=== PATIENT | male | born 1950 | race Hispanic/Latino ===

== ENCOUNTER 2018-03-29 08:36 | Outpatient (CLI) | payer OTHER | END 2018-03-29 19:10 | disposition home or self-care (01) | LOC: RAD 08:36 | DX: M54.17 Radiculopathy, lumbosacral region (principal) ==

== ENCOUNTER 2018-04-02 08:34 | Outpatient (CLI) | payer OTHER | END 2018-04-02 23:38 | disposition home or self-care (01) | LOC: MRI 08:34 | DX: M54.17 Radiculopathy, lumbosacral region (principal) ==

== ENCOUNTER 2020-03-05 02:31 | Emergency (ER) | payer OTHER ==
[~2020-03-05] VITALS: Ht 175.3 cm; Wt 86.2 kg
[2020-03-05 02:55] LABS: PLATELET COUNT 337 K/uL (142-355)
[2020-03-05 02:59] LABS: POTASSIUM 3.4 mmol/L (3.6-5.2); SODIUM 132 mmol/L (136-145)
[2020-03-05 04:04] VITALS: BP 140/53; TEMP 99.1
== END 2020-03-05 04:15 | disposition home or self-care (01) ==
LOC: ED 02:35
PROVIDERS: Hospitalist
DX: E86.0 Dehydration (principal); R19.7 Diarrhea, unspecified; U07.1 COVID-19; R06.02 Shortness of breath
CPT/HCPCS: 80053; 82550; 83880; 84484; 85027; 85610; 85730; 93005; 96360; 99284

== ENCOUNTER 2020-07-20 18:41 | Emergency (ER) | payer OTHER ==
[~2020-07-20] VITALS: Ht 175.3 cm; Wt 95.3 kg
[2020-07-20 19:30] VITALS: BP 100/51; TEMP 97.7
== END 2020-07-20 19:30 | disposition home or self-care (01) ==
LOC: ED 18:41
DX: J01.80 Other acute sinusitis (principal)
CPT/HCPCS: 99282

== ENCOUNTER 2020-07-22 14:36 | Outpatient (CLI) | payer OTHER ==
[2020-07-22 15:49] LABS: PLATELET COUNT 239 K/uL (142-355)
[2020-07-22 15:56] LABS: POTASSIUM 4.6 mmol/L (3.6-5.2)
[2020-07-23] MEDS ORDERED: ALLERGY RE50 MCG/ACT NAS (09:55)
[2020-07-23] MEDS ORDERED: TRIMETHOPRIM100 MG PO (09:57)
[2020-07-23] MEDS ORDERED: LISITAB PO (09:59)
== END 2020-07-22 20:31 | disposition home or self-care (01) ==
LOC: LABW 14:36
PROVIDERS: ATTEND Family Medicine
DX: R53.83 Other fatigue (principal); R53.1 Weakness; I95.89 Other hypotension
CPT/HCPCS: 36415; 80053; 80074; 82728; 83540; 83550; 85027; 86318

== ENCOUNTER 2020-07-22 16:43 | Observation (INO) | payer OTHER ==
[~2020-07-22] VITALS: Ht 180.3 cm; Wt 86.4 kg
[2020-07-22 16:49] VITALS: BP 133/63; TEMP 97.1
[2020-07-22 17:30] VITALS: BP 120/78
[2020-07-22 17:38] LABS: PLATELET COUNT 236 K/uL (142-355)
[2020-07-22 17:48] LABS: POTASSIUM 4.4 mmol/L (3.6-5.2); SODIUM 137 mmol/L (136-145)
[2020-07-22 17:55] LABS: PARTIAL THROMBOPLASTIN TIME 23.8 SECONDS (24.5-33.6)
[2020-07-22 18:30] VITALS: BP 128/77
[2020-07-22 19:00] VITALS: BP 124/70
[2020-07-22 19:22] VITALS: BP 114/82
[2020-07-23] VITALS (8 sets, daily range): BP systolic 102–131; BP diastolic 56–73; TEMP 97.6–98.5; Ht 180.3 cm; Wt 86.4 kg
[2020-07-23 08:53] LABS: PLATELET COUNT 201 K/uL (142-355)
[2020-07-23 09:04] LABS: POTASSIUM 4.5 mmol/L (3.6-5.2)
[2020-07-23] MEDS ORDERED: ALLERGY RE50 MCG/ACT NAS (09:55)
[2020-07-23] MEDS ORDERED: TRIMETHOPRIM100 MG PO (09:57)
[2020-07-23] MEDS ORDERED: LISITAB PO (09:59)
[2020-07-24 03:43] VITALS: BP 120/52; TEMP 98.4
[2020-07-24 05:33] LABS: PLATELET COUNT 172 K/uL (142-355)
[2020-07-24 05:54] LABS: POTASSIUM 4.4 mmol/L (3.6-5.2)
[2020-07-24 08:00] VITALS: BP 139/53; TEMP 97.6
[2020-07-24 12:00] VITALS: BP 105/56; TEMP 98.2
[2020-07-24 16:00] VITALS: BP 108/54; TEMP 97.7
[2020-07-24 20:07] VITALS: BP 121/55; TEMP 98.4
[2020-07-25 00:26] VITALS: BP 109/62; TEMP 98.6
[2020-07-25 03:53] VITALS: BP 100/61; TEMP 97.6
[2020-07-25 06:06] LABS: PLATELET COUNT 180 K/uL (142-355)
[2020-07-25 08:00] VITALS: BP 113/58; TEMP 97.5
== END 2020-07-25 10:50 | disposition home or self-care (01) ==
LOC: ED 16:43 → MED/SURG 19:03
PROVIDERS: Hospitalist; ADMIT Internal Medicine Endocrinology, Diabetes & Metabolism; ATTEND Internal Medicine Endocrinology, Diabetes & Metabolism
DX: N17.8 Other acute kidney failure (principal); N32.0 Bladder-neck obstruction; K21.9 Gastro-esophageal reflux disease without esophagitis; N40.0 Benign prostatic hyperplasia without lower urinary tract symptoms; E11.22 Type 2 diabetes mellitus with diabetic chronic kidney disease; I12.0 Hypertensive chronic kidney disease with stage 5 chronic kidney disease or end stage renal disease; N18.5 Chronic kidney disease, stage 5; D63.1 Anemia in chronic kidney disease
CPT/HCPCS: 36415; 80048; 80053; 81000; 82550; 82570; 82948; 83880; 84300; 84484; 85027; 85610; 85730; 87635; 93005; 94760; 96360; 96361; 96372; 96374; 99220; 99284; G0378; J1650; J1815; J3490; U0003

== ENCOUNTER 2020-08-19 09:31 | Outpatient (CLI) | payer OTHER ==
[~2020-08-19 09:31] MED LIST: ALLERGY RE50 MCG/ACT NAS; LISITAB PO; TRIMETHOPRIM100 MG PO
[2020-08-19 11:05] LABS: PLATELET COUNT 394 K/uL (142-355)
[2020-08-19 11:35] LABS: POTASSIUM 3.8 mmol/L (3.6-5.2)
== END 2020-08-19 22:45 | disposition home or self-care (01) ==
LOC: LABW 09:31
PROVIDERS: ATTEND Student in an Organized Health Care Education/Training Program
DX: N17.8 Other acute kidney failure (principal); N18.4 Chronic kidney disease, stage 4 (severe); E11.9 Type 2 diabetes mellitus without complications; R53.82 Chronic fatigue, unspecified; Z79.899 Other long term (current) drug therapy
CPT/HCPCS: 36415; 80053; 81000; 82043; 82306; 82570; 83036; 83516; 83970; 84100; 84155; 84165; 85027; 86038; 86160; 86255; 86430; 86592; 86701; 86702; 87389

== ENCOUNTER 2020-11-17 08:53 | Outpatient (CLI) | payer OTHER | END 2020-11-17 23:00 | disposition home or self-care (01) | LOC: LABW 08:53 | PROVIDERS: ATTEND Student in an Organized Health Care Education/Training Program | DX: N17.9 Acute kidney failure, unspecified (principal); N18.4 Chronic kidney disease, stage 4 (severe); E87.2 Acidosis; E11.22 Type 2 diabetes mellitus with diabetic chronic kidney disease; D63.1 Anemia in chronic kidney disease; N25.81 Secondary hyperparathyroidism of renal origin; I12.9 Hypertensive chronic kidney disease with stage 1 through stage 4 chronic kidney disease, or unspecified chronic kidney disease | CPT/HCPCS: 36415; 80053; 81000; 82570; 84155; 85018 ==

== ENCOUNTER 2022-05-18 17:43 | Emergency (ER) | payer OTHER ==
[~2022-05-18] VITALS: Ht 180.3 cm; Wt 93.0 kg
[2022-05-18 17:59] LABS: PLATELET COUNT 255 K/uL (142-355)
[2022-05-18 18:07] LABS: POTASSIUM 4.3 mmol/L (3.6-5.2)
[2022-05-18 20:51] VITALS: BP 139/81; TEMP 98
== END 2022-05-18 20:51 | disposition home or self-care (01) ==
LOC: ED 17:43
PROVIDERS: Emergency Medicine
DX: R10.13 Epigastric pain (principal)
CPT/HCPCS: 36415; 80053; 82550; 84484; 85027; 85610; 85730; 96374; 96375; 99284; J2270; J2405; J3490